=== PATIENT | female | born 1970 | race Caucasian/White ===

== ENCOUNTER → 2020-02-02 | Outpatient (CLI) | payer OTHER ==
[2020-02-02 09:55] LABS: CREATININE 0.9 mg/dL (0.6-1.0)
== END ==
LOC: RAD 09:03
DX: M48.07 Spinal stenosis, lumbosacral region (principal); M51.26 Other intervertebral disc displacement, lumbar region; M89.38 Hypertrophy of bone, other site; M47.817 Spondylosis without myelopathy or radiculopathy, lumbosacral region; M54.41 Lumbago with sciatica, right side; M54.42 Lumbago with sciatica, left side; G89.29 Other chronic pain

== ENCOUNTER → 2020-05-13 | Outpatient (CLI) | payer OTHER | LOC: CAT 10:25 | PROVIDERS: ATTEND Specialist | DX: M47.817 Spondylosis without myelopathy or radiculopathy, lumbosacral region (principal) ==

== ENCOUNTER → 2020-05-27 | Outpatient (CLI) | payer OTHER ==
[~2020-05-27] MED LIST: APPLE CIDER VI600 MG PO; BLACK ELDERBER1 EACH PO; GLUMETZA500 PO; LIDODERM1 EACH TOP; LIPITOR 10 MG10 M1 PO; MAGNESIUM500 MG PO; MCT OIL PO; MELATONIN10 M3 PO; METFORMIN HCL1000 M2 PO; PHENTERMINE H37.5 MG PO; TRAZODONE HCL50 MG PO; VITAMIN C1000 MG PO; VITAMIN D3250 MC1 PO; WELLBUTRIN SR150 MG PO; ZINC50 M2 PO; ZYFLAMEND PO
== END ==
LOC: LAB 07:28
PROVIDERS: ATTEND Specialist
DX: Z01.812 Encounter for preprocedural laboratory examination (principal); Z20.822 Contact with and (suspected) exposure to COVID-19

== ENCOUNTER 2020-06-01 06:16 | Inpatient (IN) | payer OTHER ==
[2020-05-19 12:51] LABS: HEMATOCRIT 43.9 % (37.0-47.0); HEMOGLOBIN 14.4 gm/dL (12.0-15.0); MCHC 32.8 g/dL (28.0-37.0); MCV 88.5 fL (80.0-100.0); RBC 4.96 mil/uL (4.20-5.00); RDW 13.7 % (10.5-14.5); WBC 9.3 thou/uL (4.0-11.0)
[2020-05-19 13:06] LABS: CALCIUM 9.3 mg/dL (8.5-10.1); CREATININE 0.8 mg/dL (0.6-1.0); POTASSIUM 4.2 mmol/L (3.5-5.1); PROTIME 10.5 Seconds (9.3-11.4); TOTAL BILIRUBIN 0.3 mg/dL (0.2-1.0); TOTAL PROTEIN 7.5 g/dL (6.4-8.2)
[2020-05-19 13:07] LABS: URINE BILIRUBIN NEGATIVE (Negative); URINE BLOOD NEGATIVE (Negative); URINE CLARITY CLEAR; URINE COLOR YELLOW; URINE GLUCOSE-RANDOM* NEGATIVE (Negative); URINE KETONES NEGATIVE (Negative); URINE LEUKOCYTES-REFLEX NEGATIVE (Negative); URINE NITRITE-REFLEX NEGATIVE (Negative); URINE PROTEIN (DIPSTICK) NEGATIVE (Negative); URINE SPECIFIC GRAVITY <= 1.005 (1.005-1.035); URINE UROBILINOGEN 0.2 E.U./dl (0.2-1.0)
--- NOTE | 2020-05-19 13:52 | EKG ---
[address] [address] ELECTROCARDIOGRAM REPORT Name: MIGUEL CLIFTON Room #: PRE IN ..#: [id number] Admission: Attend Phys: Dheeraj Blake, Discharge: Date of : 66 Report #: [id number] [facility] Test Date: 2020-05-19 Test Time: 12:56:23 Pat Name: MIGUEL CLIFTON Department: Room: Gender: F Musculoskeletal Physiotherapist: GIOVANNI : 1970 Requested By: Dheeraj Blake Order Number: [id number] MD: Darryl Ni Measurements Intervals [place] Rate: 82 P: 32 IN: 162 QRS: 42 QRSD: 97 T: 16 QT: 379 QTc: 443 Interpretive Statements Sinus rhythm No previous ECG available for comparison Electronically Signed On 05-19-2020 13:51:56 MUSEUM EXHIBIT TECHNICIAN by Darryl Ni [email or web address] <ELECTRONICALLY SIGNED> By: Darryl Ni MD, [facility] 05/19/20 1351 1256 1256 Darryl Ni MD, FACC /EPI
[2020-06-01] VITALS (7 sets, daily range): BP systolic 118–157; BP diastolic 72–91
[~2020-06-01] VITALS: Ht 165.1 cm; Wt 127.5 kg
--- NOTE | 2020-06-01 14:57 | NUR ---
ASSESSMENT: CM REVIEWED CHART AND MET WITH PATIENT. PT IS ALERT AND ORIENTED X4. PT IS S/P LUMBAR FUSION. PT REPORTS THAT SHE LIVES IN A RANCH STYLE HOME WITH HER ADULT SON AND ROOMATE. PT REPORTS SHE HAS ONE STEP TO ENTER THE HOME AND NO STEPS ONCE INSIDE. PT STATES SHE IS NORMALLY INDEPENDENT WITH ADLS AND AMBULATION. PT STATES HE ROOMATE HAS A CANE SHE CAN USE IF NEEDED. PT REPORTS SHE HAS NO HX OF HH OR SNF. CM DISCUSSED ROLE. CM WILL CONTINUE TO FOLLOW PT TO ASSIST NEEDED.
--- NOTE | 2020-06-01 19:45 | NUR ---
PATIENT ARRIVED ON UNIT TO ROOM 447 FROM POST OP. WHALEY RETAIL LOSS PREVENTION SPECIALIST PUMP IV FLUIDS ORDERED. HAD LEFT L4 L5 LUMBAR FUSION WITH MIREYA DRAIN AGUACEL DRESSING INTACT. HAS C-PAP CALLED RT FOR CAPNIGRAPY MACHINE SINCE PT HAS RETAIL LOSS PREVENTION SPECIALIST MORPHINE ORDEDED. PT REGULAR DIET. FRIEND AT BEDSIDE. UP TO BSC. PT ALERT XS 4 COOPERATIVWE WITH CARE
--- NOTE | 2020-06-02 02:15 | NUR ---
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
[2020-06-02 05:16] VITALS: BP 100/61
[2020-06-02 05:18] LABS: ABSOLUTE NEUTROPHILS 8.8 thou/uL (1.4-8.2); BASOPHILS 0.2 % (0.0-2.0); EOSINOPHILS 0.2 % (0.0-3.0); HEMATOCRIT 38.6 % (37.0-47.0); HEMOGLOBIN 12.3 gm/dL (12.0-15.0); LYMPHOCYTES 18.9 % (24.0-44.0); MCH 28.8 pg (26.0-34.0); MCHC 31.9 g/dL (28.0-37.0); MCV 90.2 fL (80.0-100.0); MONOCYTES 6.8 % (1.0-8.0); PLATELET COUNT 208 thou/uL (150-400); POLYS 73.9 % (36.0-66.0); RBC 4.27 mil/uL (4.20-5.00); RDW 13.8 % (10.5-14.5); WBC 11.9 thou/uL (4.0-11.0)
[2020-06-02 05:25] LABS: CALCIUM 8.2 mg/dL (8.5-10.1); CREATININE 0.9 mg/dL (0.6-1.0)
[2020-06-02 08:28] VITALS: BP 106/70
--- NOTE | 2020-06-02 13:24 | NUR ---
ON-GOING ASSESSMENT: CM REVIEWED CHART. 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 PT IS TO CONTINUE WORKING WITH PT/OT. PT WILL REMAIN IN HOUSE UNTIL LIKELY TOMORROW. CM WILL CONTINUE TO FOLLOW TO ASSIST NEEDED.
[2020-06-02 16:11] VITALS: BP 109/69
--- NOTE | 2020-06-02 17:14 | NUR ---
ASSUMED CARE OF PATIENT THIS AM AT 0700 PT IS ALERT XS 4. DCD CAFETERIA DIRECTOR PUMP HAD MORPHINE LOADED. JOCELYN PFEIFFER PT HAS WORKED WITH THERAPY AND HAS BEEN UP IN CHAIR. 5 JANNIE CAME TO ASSESS FOR REHAB PLACEMENT.
--- NOTE | 2020-06-02 18:01 | NUR ---
MIREYA DRAIN PULLED HAD 35 IN BULB. MAY PULL WHEN LESS 50. PT HAD NO DISCOMFORT WHILE IT WAS BEING PULLED.
[2020-06-02 19:40] VITALS: BP 117/76
--- NOTE | 2020-06-03 04:08 | NUR ---
ASSUMED PTCARE AT 1900.PT UP WITH SBA TO THE BSC.PT C/O PAIN ON HER BACK,MANAGED WITH MED.DRSG TO HER BACK DRY AND INTACT.PT SLEEPING ON HER BED AT THIS TIME.CALL LIGHT WITHIN REACH.
[2020-06-03 07:47] VITALS: BP 121/74
--- NOTE | 2020-06-03 10:08 | NUR ---
PT CARE ASSUMED AT 0700. A&Ox4. IV PATENT WITH NO REDNESS OR EDEMA, SALINE LOCKED. DRAIN DRESSING CHANGED. AQUACELL DRESSING CHANGED. NO REDNESS OR TENDERNESS. PT UP WITH STANDBY. SCD'S IN PLACE. UP IN THE RECLINER WITH OT. PT MEDICALLY STABLE TO DISCAHRGE BACK TO HOME. PT CONCERNED ABOUT DISCHARGING HOME BECAUSE SHE EXPECTED TO GO TO REHAB AND HAS NOTHING SET UP TO GO HOME TODAY. PT ENCOURAGED TO MAKE ARRANGEMENTS TO CHANGE PLANS. PT DOES WANT TO SHOWER BEFORE GOING HOME. PAIN MANAGED WELL WITH PAIN MEDICATION ON BOARD. TRANSPORTATION SET UP FOR NOON. WILL FILL PAIN MEDICATION AT OUR PHARMACY. WILL CONTINUE TO MONITOR UNTIL DISCHARGE.
[2020-06-03 10:43] VITALS: BP 121/74
[2020-06-03 11:27] VITALS: BP 121/74
[2020-06-03] MEDS ORDERED: MIRALAX17 GM PO (12:06)
[2020-06-03] MEDS ORDERED: MAGNESIUM CITR296 ML PO (12:06)
[2020-06-03] MEDS ORDERED: ROBAXIN 750 MG750 MG PO (12:06)
[2020-06-03] MEDS ORDERED: ACETAMINOPHEN325 M1 PO (12:06)
[2020-06-03] MEDS ORDERED: COLACE 100 MG100 MG PO (12:06)
[2020-06-03] MEDS ORDERED: NORCO 10-325 T1 EACH PO (12:06)
--- NOTE | 2020-06-03 14:02 | NUR ---
ON-GOING ASSESSMENT: CM REVIEWED CHART AND SPOKE WITH PATIENT. PT HAS ORDERS TO DISCHARGE HOME TODAY WITH HOME HEALTH. PT HAS NO PREFENCE OF COMPANY. CM FAXED REFERRAL TO [facility] WHO REPORTS THEY CAN ACCEPT HER. PT WAS NOT A CANIDATE FOR 5N ACUTE REHAB SHE IS TOO HIGH LEVEL. PT IS ALSO NOT A CANIDATE FOR SNF PHYSICAL THERAPY IS RECOMMENDING HOME. CM DISCUSSED THAT HH CAN FOLLOW UP WITH PATIENT AND SHE IS AGREEABLE. PT REPORTS NEEDING TRANSPORTATION HOME PT ALSO STATING SHE IS WANTING HER MEDICATIONS FILLED HERE SO SHE WILL NOT HAVE TO GET OUT. (PT LIVES WITH ADULT SON). CM FILLED MEDICATIONS AT [facility] AND PT OWES 67.64. PT STATING SHE CANNOT PAY THIS HER OROZCO IS AT HOME AND SHE HAS NOONE THAT HAS ACCESS TO HER CARD AT THIS TIME. CM SPOKE WITH DIRECTOR WHO APPROVED WHEELCHAIR VAN FOR PATIENT TO GO HOME WELL COVER THE COST OF THE MEDICATIONS COSTING 67.64. CM DISCUSSED MEDS WITH CM DIRECTOR AND APPROVED. CM PROVIDED BEDSIDE RN WITH MEDICATIONS. CM SET UP WHEELCHAIR VAN THROUGH [facility]. CM FAXED D/C ORDERS TO [facility] AND CONFIRMED THEY RECEIVED IT. CASE CLOSED.
== END 2020-06-03 18:09 | disposition home health service (06) | DRG 460 ==
LOC: PRE → TBA 06:16 → 4S 06:16 → PRE 07:28 → 4S 13:11 → PRE 15:46 → 4S 06-03 18:09
PROVIDERS: Nurse Practitioner; ADMIT Specialist; ATTEND Specialist
DX: M48.061 Spinal stenosis, lumbar region without neurogenic claudication (principal); Z68.42 Body mass index [BMI] 45.0-49.9, adult; M53.2X6 Spinal instabilities, lumbar region; M79.7 Fibromyalgia; J45.909 Unspecified asthma, uncomplicated; E78.5 Hyperlipidemia, unspecified; F32.9 Major depressive disorder, single episode, unspecified; G47.33 Obstructive sleep apnea (adult) (pediatric); M51.36 Other intervertebral disc degeneration, lumbar region; G89.29 Other chronic pain; E66.01 Morbid (severe) obesity due to excess calories; E11.9 Type 2 diabetes mellitus without complications; F41.9 Anxiety disorder, unspecified; Z87.891 Personal history of nicotine dependence; Z79.899 Other long term (current) drug therapy; Z88.8 Allergy status to other drugs, medicaments and biological substances
CPT/HCPCS: 10195; 50010; 50101; 50331; 50402; 50455; 50850; 51751; 51878; 52258; 55340; 56527; 56528; 56532; 57103; 58457; 58545; 58546; 58553; 58554; 58555; 58556; 62110; 62900; 70005

== ENCOUNTER → 2021-01-27 | Outpatient (CLI) | payer OTHER ==
[~2021-01-27] MED LIST changes: +ACETAMINOPHEN325 M1 PO; +COLACE 100 MG100 MG PO; +MAGNESIUM CITR296 ML PO; +MIRALAX17 GM PO; +NORCO 10-325 T1 EACH PO; +ROBAXIN 750 MG750 MG PO
== END ==
LOC: RAD 13:53
PROVIDERS: ATTEND Specialist
DX: M43.26 Fusion of spine, lumbar region (principal); M54.12 Radiculopathy, cervical region